=== PATIENT | female | born 1985 | race Caucasian/White ===

== ENCOUNTER 2018-08-03 10:25 | Emergency (ER) | payer BC ==
[2018-08-03] MEDS ORDERED: KETOROLAC TROMETHAMINE INJ/PF 30 MG/1 ML SDV IV ONE (10:51)
[2018-08-03] MEDS ORDERED: ONDANSETRON HCL INJ/PF 4 MG/2 ML SDV IV ONE (10:51)
--- NOTE | 2018-08-03 10:56 | ER Document Report ---
ED GI/ - General Chief Complaint: Abdominal Cramping Stated Complaint: ABDOMINAL PAIN/VAGINAL BLEEDING Time Seen by Provider: 08/03/18 10:40 Notes: Patient is complaining of pain in the lower abdomen/pelvic region that began about 5 AM this morning. She feels as if it is "razor blades" sticking in her lower abdomen. Patient is being seen by a local AVIATION MANAGER for vaginal bleeding that has been heavy ever since she had her son 2 years ago. Beginning on June 02 , of this year, patient says that her bleeding has become daily, every day. She has had an office ultrasound in mid June, which showed a left ovarian cyst and "hyperplasia and thickened endometrium". She has had Pap smears and colposcopy performed and is scheduled for D&C August 07. She will have an IUD placed a couple of weeks later to provide hormone therapy. Patient has had her tubes tied and had IUDs in the past. She has had 3 C-sections, but no other abdominal surgeries. Patient does have anxiety for which she takes Xanax as needed, but has not taken any recently. TRAVEL OUTSIDE OF THE [place] IN LAST 30 DAYS: No - Related Data Allergies/Adverse Reactions: acetaminophen [From Percocet] Allergy (Verified 08/03/18 10:56) butalbital [From Fioricet] Allergy (Verified 08/03/18 10:56) caffeine [From Fioricet] Allergy (Verified 08/03/18 10:56) nortriptyline [Nortriptyline] Allergy (Verified 08/03/18 10:56) oxycodone HCl [From Percocet] Allergy (Verified 08/03/18 10:56) Penicillins Allergy (Verified 08/03/18 10:56) Past Medical History - Social History Smoking Status: Unknown if Ever Smoked Family History: Reviewed & Not Pertinent Endocrine Medical History: Reports: Hx Diabetes Mellitus Type 2 - gestational Past Surgical History: Reports: Hx Breast Surgery - reduction, Hx Section - Immunizations Hx Diphtheria, Pertussis, Tetanus Vaccination: Yes - received with [facility] Review of Systems - Review of Systems Notes: REVIEW OF SYSTEMS: CONSTITUTIONAL : Denies fever. EENT: Denies eye, ear, nose or mouth or throat pain or other symptoms. CARDIOVASCULAR: Denies chest pain. RESPIRATORY: Denies cough, chest congestion, or shortness of breath. GASTROINTESTINAL: See HPI. GENITOURINARY: Denies difficulty or painful urinating, urinary frequency, blood in urine. MUSCULOSKELETAL: Denies back or neck pain. Denies joint pain or swelling. SKIN: Denies rash or skin lesions. NEUROLOGICAL: Denies LOC or altered mental status. Denies headache. Denies sensory loss or motor deficits. ALL OTHER SYSTEMS REVIEWED AND NEGATIVE. Physical Exam - Vital signs Vitals: Temp Pulse Resp BP Pulse Ox 98.2 F 85 20 151/88 H 97 08/03/18 10:31 08/03/18 10:31 08/03/18 10:31 08/03/18 10:31 08/03/18 10:31 Interpretation: Normal - Notes Notes: PHYSICAL EXAMINATION: GENERAL: Well-appearing, in no acute distress. HEAD: Atraumatic, normocephalic. EYES: Pupils equal round and reactive to light, extraocular movements intact. NECK: Normal range of motion, supple. LUNGS: Breath sounds clear and equal bilaterally. HEART: Regular rate and rhythm without murmurs. ABDOMEN: Soft, mildly tender in the suprapubic region. No guarding or rebound. No masses. BACK: Mild paralumbar tenderness in the lower back, but otherwise no tenderness throughout remainder of the back. EXTREMITIES: Normal range of motion without pain. NEUROLOGICAL: Normal speech, normal gait. Normal sensory, motor, and reflex exams. Awake, alert, and oriented x3. Cranial nerves normal. PSYCH: Normal mood, normal affect. SKIN: Warm, dry, no rashes. - Genitourinary External exam: Normal Speculum exam: Cervix closed. No: Vaginal discharge Vaginal bleeding: Mild - No clots seen Bimanuel exam: Uterus enlarged - Somewhat enlarged and very tender to press.. No: Cervical motion tender, Bladder/Urethral tender, Adnexal mass, Adnexal tenderness Course - Re-evaluation Re-evalutation: 08/03/18 11:47 Patient says she got a "little bit" of pain relief with the Toradol. We will give her some fentanyl IV. Have ordered an ultrasound. 08/03/18 16:24 Patient requested additional pain medication and was given a milligram of Dilaudid IV. That seemed to help her pain significantly. Lab studies all came back essentially normal except for her urinalysis. White count and differential normal. I initially did an ultrasound which did not show any significant finding except for endometrial hyperplasia and collection of heterogeneous material in the uterus. Patient's urine looked like a possible UTI with many WBCs and RBCs on the urinalysis. The blood could be secondary to the patient's continuous vaginal bleeding that she has had for the last several months. However she had a significant number of white cells. A urine culture was ordered, the patient was given Rocephin 1 g IV, and she will be discharged on a 6-day prescription for Macrobid. I spoke with Dr. Irwin, on-call for INJECTION MOLDING OPERATOR, asked him if there is anything else that he would recommend me doing at this time and he had no other recommendations and felt the patient had been sufficiently worked up and could be discharged home. Patient was advised to return if she has any new or worsening symptoms. - Vital Signs Vital signs: Temp Pulse Resp BP Pulse Ox 98.2 F 85 20 151/88 H 97 08/03/18 10:31 08/03/18 10:31 08/03/18 10:31 08/03/18 10:31 08/03/18 10:31 - Laboratory Result Diagrams: 08/03/18 11:05 08/03/18 11:05 Laboratory results interpreted by me: 08/03/18 08/03/18 10:30 11:05 RDW 14.4 H Urine Protein 100 H Urine Blood LARGE H - Diagnostic Test Radiology reviewed: Image reviewed, Reports reviewed - Ultrasound shows collection of heterogeneous material in the uterus. CT scan showed the same. Otherwise, both of those studies were unremarkable. There is no evidence of any kidney stone or hydronephrosis. CT scan noncontrasted showed the same heterogeneous collection of material in the uterus but no other findings. Discharge - Discharge Clinical Impression: Pelvic pain, Abdominal pain, Endometrial hyperplasia, UTI (urinary tract infection) Condition: Stable Disposition: HOME, SELF-CARE Additional Instructions: ABDOMINAL PAIN: There are many causes of abdominal pain. Pain can mean a serious problem requiring surgery (such as appendicitis). It can also be an innocent problem that goes away on its own (such as a viral infection). Often, time must pass to determine the cause of pain. The physician does not feel that hospitalization is necessary, at present. Things may change within the next 24 hours. Call the doctor or come back for re- examination if any problems occur, such as: (1) Pain that becomes more severe, steady, or becomes concentrated in one specific area. Also, pain that is more severe with movement or coughing. (2) Vomiting that persists or becomes more frequent. (3) Blood in the vomitus, urine, or bowel movements. Blood in the stool may have a tarry or black appearance. (4) Shaking chills or fever greater than 100 degrees F. (5) The abdomen becomes more distended or swollen. (6) Bowel movements cease. (7) Failure to improve as expected. You have been found to have fluid and other materials in the your uterus that is likely the cause of your pain. That is also the reason that you are scheduled to have the D&C done Sunday. TORADOL INJECTION: You have been given an injection of ketorolac tromethamine (Toradol). This is an excellent, safe drug for pain control. It also has potent antiinflammatory action. You should have significant pain relief within about one hour. Toradol is not addicting and is non-sedating. It does not interfere with driving or work. Call or return if you develop itching, hives, shortness of breath, or rash. PAIN MEDICATION INJECTION: You have received an injection of a pain medication. You should experience significant pain relief within 45 minutes. This drug is a narcotic - - it will impair your judgement, slow your reaction time and make you sleepy ( as well as relieve your pain). Narcotics also can cause nausea. You should not drive, work with machinery, or perform any task requiring mental alertness until all effects of the medication are gone -- six to eight hours. Do not take any alcohol, or sedatives, and do not take any other medication without checking with your physician. ORAL NARCOTIC MEDICATION: You have been given a prescription for pain control. This medication is a narcotic. It's best taken with food, as nausea can result if taken on an empty stomach. Don't operate machinery or drive within six hours of taking this medication. Do not combine this medicine with alcohol, or with any medication which can cause sedation (such as cold tablets or sleeping pills) unless you get permission from the physician. Narcotics tend to cause constipation. If possible, drink plenty of fluids and eat a diet high in fiber and fruits. Likely URINARY TRACT INFECTION: Your evaluation indicates that you may have a urinary tract infection. This is due to germs growing in the bladder. This is a common problem. This infection usually responds quickly to antibiotics. Your antibiotic should be taken exactly as prescribed. Drink plenty of fluids -- three to four quarts a day. Occasionally, a bladder anesthetic will be prescribed to help stop the feeling of urgency until the antibiotic has a chance to clear the infection. This may cause your urine to be dark orange. Certain urine infections require a culture. If the doctor obtained a culture, the results will be back in two days. You should call to see if a change in treatment is needed. A repeat urinalysis after you finish treatment is often recommended. The physician will let you know if further testing is required. Call the doctor if you develop fever, chills, flank pain, inability to urinate, or blood in the urine. ANTIBIOTIC THERAPY: You have been given an antibiotic prescription. It's important that you take all the medication, unless instructed otherwise by your physician. Failure to complete the entire course can result in relapse of your condition. Common side effects of antibiotics include nausea, intestinal cramping, or diarrhea. Women may develop vaginal yeast infections, and babies can get yeast (thrush) in the mouth following the use of antibiotics. Contact your physician if you develop significant side effects from this medication. Allergy to this antibiotic can result in hives, wheezing, faintness, or itching. If symptoms of allergy occur, stop the medication and call the doctor. NITROFURANTOIN (MACRODANTIN, MACROBID): You have received a prescription for nitrofurantoin (Macrodantin). This antibiotic is used for urinary tract infections. Women who are or nursing should notify the physician before taking this medicine. If you have ever had a problem caused by this medication in the past, be sure the physician is aware of it. Common side effects of this medicine include nausea, vomiting, or decreased appetite. Notify your physician if these side effects become severe. Immediately stop this medicine and call the physician if you develop cough , shortness of breath, chest pain, weakness, jaundice (yellow color of the skin and whites of the eyes), or a skin rash. FOLLOW-UP CARE: If you have been referred to a physician for follow-up care, call the physician s office for an appointment as you were instructed or within the next two days. If you experience worsening or a significant change in your symptoms, notify the physician immediately or return to the Emergency Department at any time for re-evaluation. Keep your appointments this week to have your preop evaluation and then surgery as scheduled. Return at any time if you having new or worsening symptoms such as fevers, increasing pain, etc. Prescriptions: Hydrocodone/Acetaminophen [Tumtum 5-325 Tablet] 1 - 2 each PO Q6HP PRN #15 tablet PRN Reason: Nitrofurantoin/Nitrofuran Mac [Macrobid 100 mg Capsule] 1 tab PO BID #12 capsule Referrals: RONEL CASTILLO MD [ACTIVE STAFF] - Follow up as needed
[2018-08-03] MEDS ORDERED: FENTANYL CITRATE INJ/PF 100 MCG/2 ML AMPUL IV ONE (11:43)
[2018-08-03 11:44] LABS: APPEARANCE,URINE CLOUDY; BILIRUBIN,URINE NEGATIVE (NEGATIVE); GLUCOSE, URINE NEGATIVE (NEGATIVE); KETONES,URINE NEGATIVE (NEGATIVE); LEUKOCYTE ESTERASE,URINE NEGATIVE (NEGATIVE); NITRITE,URINE NEGATIVE (NEGATIVE); PROTEIN,URINE 100 mg/dL (NEGATIVE); URINE SPECIFIC GRAVITY 1.018; UROBILINOGEN,URINE NEGATIVE mg/dL (<2.0)
[2018-08-03 11:46] LABS: COLOR,URINE ORANGE
[2018-08-03 11:54] LABS: ABSOLUTE EOSINOPHILS # (AUTO) 0.3 10^3/uL (0.0-0.6); ABSOLUTE LYMPHOCYTES (AUTO) 2.8 10^3/uL (0.5-4.7); ABSOLUTE MONOCYTES (AUTO) 0.8 10^3/uL (0.1-1.4); ABSOLUTE NEUT (AUTO) 6.2 10^3/uL (1.7-8.2); BASOPHILS % (AUTO) 0.4 % (0-2); EOSINOPHILS % (AUTO) 2.9 % (0-6); HEMATOCRIT 39.4 % (36.0-47.0); HEMOGLOBIN 13.3 g/dL (12.0-15.5); LYMPHOCYTES % (AUTO) 27.2 % (13-45); MEAN CORPUSCULAR HEMOGLOBIN 27.9 pg (27.0-33.4); MEAN CORPUSCULAR HGB CONC 33.7 g/dL (32.0-36.0); MEAN CORPUSCULAR VOLUME 83 fl (80-97); MONOCYTES % (AUTO) 8.4 % (3-13); PLATELET COUNT 301 10^3/uL (150-450); RED BLOOD COUNT 4.76 10^6/uL (3.72-5.28); RED CELL DISTRIBUTION WIDTH 14.4 % (11.5-14.0); SEGMENTED NEUTROPHILS % (AUTO) 61.1 % (42-78); TOTAL CELLS COUNTED % (AUTO) 100 %; WHITE BLOOD COUNT 10.1 10^3/uL (4.0-10.5)
[2018-08-03 11:55] LABS: ALANINE AMINOTRANSFERASE 38 U/L (9-52); ALBUMIN 4.6 g/dL (3.5-5.0); ALKALINE PHOSPHATASE 62 U/L (38-126); ANION GAP 14 (5-19); ASPARTATE AMINO TRANSFERASE 29 U/L (14-36); BILIRUBIN,DIRECT 0.3 mg/dL (0.0-0.4); BILIRUBIN,TOTAL 0.5 mg/dL (0.2-1.3); BLOOD UREA NITROGEN 11 mg/dL (7-20); CALCIUM 9.8 mg/dL (8.4-10.2); CARBON DIOXIDE 24 mmol/L (22-30); CHLORIDE 103 mmol/L (98-107); GLUCOSE 98 mg/dL (75-110); LIPASE 93.1 U/L (23-300); POTASSIUM 4.8 mmol/L (3.6-5.0); TOTAL PROTEIN 7.8 g/dL (6.3-8.2)
--- NOTE | 2018-08-03 14:07 | RADIOLOGY REPORT (SQ) ---
EXAM DESCRIPTION: U/S NON OB PEL W/DOPPLER COMPLETED DATE/TIME: 08/03/2018 12:56 pm REASON FOR STUDY: Lower midline abdominal pain, Hx of ovarian cyst COMPARISON: 11/13/2007 TECHNIQUE: Dynamic and static grayscale images acquired of the pelvis via transabdominal approach an d recorded on PACS. Additional selected color Doppler and spectral images recorded. LIMITATIONS: None. FINDINGS: UTERUS: Contour normal. No mass. ENDOMETRIAL STRIPE: Heterogenous CERVIX: Few nabothian cysts. Heterogenous material within the cervical canal. RIGHT OVARY AND DOPPLER: Ovary not visualized. LEFT OVARY AND DOPPLER: Ovary not visualized. FREE FLUID: None noted. OTHER: No other significant finding. MEASUREMENTS: UTERUS: 11.9 x 5.1 x 6.4 cm ENDOMETRIAL STRIPE: 2.2 cm RIGHT OVARY: Not visualized. LEFT OVARY: Not visualized IMPRESSION: 1. Nonvisualization of the ovaries. 2. Heterogenous material within the endometrium extending into the cervical canal which likely repres ents blood products giving the patient's age. However, other etiologies remain in the differential. Correlate with physical exam and tissue sampling. TECHNICAL DOCUMENTATION: JOB ID: [id number] [employer]- All Rights Reserved Rev-02/08 Reading location - IP/workstation name: [email or web address]
--- NOTE | 2018-08-03 14:42 | RADIOLOGY REPORT (SQ) ---
EXAM DESCRIPTION: CT LTD RENAL STONE PROTOCOL ON COMPLETED DATE/TIME: 08/03/2018 2:01 pm REASON FOR STUDY: Suprapubic pain and left side pain and hematuria COMPARISON: Concurrent pelvic ultrasound TECHNIQUE: CT scan of the abdomen and pelvis performed without intravenous or oral contrast. Images reviewed with lung, soft tissue, and bone windows. Reconstructed coronal and sagittal MPR images revi ewed. All images stored on PACS. All CT scanners at this facility use dose modulation, iterative reconstruction, and/or weight based d osing when appropriate to reduce radiation dose to as low as reasonably achievable (ALARA). [facility]: Dose Right [facility]: CareDose [facility]: Dose Right [facility]: Teradose 4D [facility]: Smart HundredApples RADIATION DOSE: CT Rad equipment meets quality standard of care and radiation dose reduction techniq ues were employed. CTDIvol: 11.1 mGy. DLP: 612 mGy-cm.mGy. LIMITATIONS: None. FINDINGS: LOWER CHEST: No significant findings. No nodules or infiltrates. NON-CONTRASTED LIVER, SPLEEN, ADRENALS: Evaluation limited by lack of IV contrast. The liver is diff usely hypoattenuating. No identified significant masses. PANCREAS: No masses. No peripancreatic inflammatory changes. GALLBLADDER: No identified stones by CT criteria. No inflammatory changes to suggest cholecystitis. RIGHT KIDNEY AND URETER: No suspicious masses. Assessment limited by lack of IV contrast. No signif icant calcifications. No hydronephrosis or hydroureter. LEFT KIDNEY AND URETER: No suspicious masses. Assessment limited by lack of IV contrast. No signifi cant calcifications. No hydronephrosis or hydroureter. AORTA AND RETROPERITONEUM: No aneurysm. No retroperitoneal masses or adenopathy. BOWEL AND PERITONEAL CAVITY: No dilated loops of bowel. No obvious masses or inflammatory changes. N o free fluid. No intraperitoneal free air. APPENDIX: Normal. PELVIS, BLADDER, AND ABDOMINAL WALL:Endometrial cavity is distended with heterogeneous hyperattenuati ng an hypoattenuating material, corresponding to same day pelvic ultrasound. Bilateral adnexal hypod ensities, located anteriorly within the pelvis measuring 2.6 x 3.6 cm on the left and 4.4 x 3.4 cm on the right. These likely represent ovarian cysts. Given the age of the patient and the size, no fur ther follow-up is warranted. No pelvic free fluid. Urinary bladder is collapsed. BONES: Mild degenerative disc disease of L4-S1. OTHER: No other significant finding. IMPRESSION: 1. No acute findings within the abdomen or pelvis. Specifically, no nephrolithiasis or hydronephrosi s. 2. Endometrial cavity the uterus is distended with heterogenous material. Again, likely representing blood products, given the patient's age, and corresponding to same day pelvic ultrasound. Recommend ations remain the same. COMMENT: Quality ID # [id number]: Final reports with documentation of one or more dose reduction techniques (e.g., Automated exposure control, adjustment of the mA and/or kV according to patient size, use of iterative reconstruction technique) TECHNICAL DOCUMENTATION: JOB ID: [id number] [employer]- All Rights Reserved Reading location - IP/workstation name: [email or web address]
[2018-08-03] MEDS ORDERED: CEFTRIAXONE INJ 1000 MG VIAL IV ONE (14:43)
[2018-08-03] MEDS ORDERED: HYDROMORPHONE HCL INJ/PF 2 MG/ML AMPULE IV ONE (14:59)
[2018-08-03 16:13] LABS: RBCS (WET MOUNT) 4+ RBCS SEEN; T.VAGINALIS (WET MOUNT) NO TRICHOMONAS SEEN; WBCS (WET MOUNT) NO WBCS SEEN; YEAST (WET MOUNT) NO YEAST SEEN
[2018-08-03 16:31] VITALS: BP 113/81
[2018-08-03 17:43] LABS: CHLAM PCR NOT DETECTED (NOT DETECT); GON PCR NOT DETECTED (NOT DETECT)
== END 2018-08-03 16:30 | disposition home or self-care (01) ==
LOC: ER 10:25
DX: N85.00 Endometrial hyperplasia, unspecified (principal); N39.0 Urinary tract infection, site not specified; R10.30 Lower abdominal pain, unspecified; R10.2 Pelvic and perineal pain; Z88.6 Allergy status to analgesic agent; Z88.0 Allergy status to penicillin; Z97.5 Presence of (intrauterine) contraceptive device
CPT/HCPCS: 99284; 96375; 96365; 36415; 87086; 87210; 83690; 84703; 85025; 80053; 81001; 87491; 87591; 76856; 93976; 76380; J3010; J1885; J1170; J0696; J2405

== ENCOUNTER 2018-08-07 09:55 | Day surgery (SDC) | payer BC ==
[2018-08-06 11:43] LABS: HEMATOCRIT 35.9 % (36.0-47.0); HEMOGLOBIN 12.3 g/dL (12.0-15.5); MEAN CORPUSCULAR HEMOGLOBIN 28.1 pg (27.0-33.4); MEAN CORPUSCULAR HGB CONC 34.2 g/dL (32.0-36.0); MEAN CORPUSCULAR VOLUME 82 fl (80-97); PLATELET COUNT 255 10^3/uL (150-450); RED BLOOD COUNT 4.37 10^6/uL (3.72-5.28); RED CELL DISTRIBUTION WIDTH 14.2 % (11.5-14.0); WHITE BLOOD COUNT 6.7 10^3/uL (4.0-10.5)
[2018-08-06 11:56] LABS: APPEARANCE,URINE SLIGHTLY-CLOUDY; BILIRUBIN,URINE NEGATIVE (NEGATIVE); COLOR,URINE YELLOW; GLUCOSE, URINE NEGATIVE (NEGATIVE); KETONES,URINE NEGATIVE (NEGATIVE); LEUKOCYTE ESTERASE,URINE SMALL (NEGATIVE); NITRITE,URINE NEGATIVE (NEGATIVE); PROTEIN,URINE 30 mg/dL (NEGATIVE); URINE SPECIFIC GRAVITY 1.021
[~2018-08-07 09:55] MED LIST: LIDOCAINE 0.5% INJ-PF (5 MG/ML) 50 ML SDV SUBCUT PRN; RINGERS SOLUTION,LACTATED 1,000 ML IV PRN; SCOPOLAMINE HYDROBROMIDE 1.5 MG PATCH.TD72 TD PRN
[2018-08-07] MEDS ORDERED: SCOPOLAMINE HYDROBROMIDE 1.5 MG PATCH.TD72 ONE (10:03)
[2018-08-07] MEDS ORDERED: LIDOCAINE 0.5%/EPINEPHRINE INJ 50 ML VIAL ONE (10:40)
[2018-08-07] MEDS ORDERED: KETOROLAC TROMETHAMINE 60 MG/2 ML SDV ONE (10:53)
[2018-08-07] MEDS ORDERED: FENTANYL CITRATE INJ/PF 100 MCG/2 ML AMPUL ONE (10:54)
[2018-08-07] MEDS ORDERED: MIDAZOLAM 2 MG/2 ML INJ ONE (10:54)
[2018-08-07] MEDS ORDERED: PROPOFOL INJ 200 MG/20 ML VIAL IV ONE (10:54)
[2018-08-07] MEDS ORDERED: PROMETHAZINE HCL INJ 25 MG/1 ML VIAL IV PRN ×2 (12:15)
[2018-08-07] MEDS ORDERED: FENTANYL CITRATE INJ/PF 100 MCG/2 ML AMPUL IV PRN ×3 (12:15)
[2018-08-07] MEDS ORDERED: DIPHENHYDRAMINE HCL 50 MG/ML VIAL IV PRN (12:15)
[2018-08-07] MEDS ORDERED: MEPERIDINE HCL/PF INJ 25 MG/1 ML DISP.SYRIN IV PRN (12:15)
[2018-08-07] MEDS ORDERED: IBUPROFEN 800 MG TABLET ONE (13:27)
[2018-08-07] MEDS ORDERED: ONDANSETRON HCL INJ/PF 4 MG/2 ML SDV IV PRN (13:42)
[2018-08-07] MEDS ORDERED: OXYCODONE-ACETAMINOPHEN 5-325 MG TABLET PO PRN ×2 (13:48→13:50)
[2018-08-07] MEDS ORDERED: HYDROMORPHONE HCL INJ/PF 2 MG/ML AMPULE IV PRN (13:51)
[2018-08-07 14:47] VITALS: BP 113/70
--- NOTE | 2018-08-07 21:10 | Operative Report ---
Operative Report DATE OF SURGERY: 08/07/18 PREOPERATIVE DIAGNOSIS: Dysfunctional Uterine Bleeding, SImple hyperplasia without atypia, DANGELO II/LSGIL persistent POSTOPERATIVE DIAGNOSIS: CADEN OPERATION: EUA, Paracervical Block, Hysteroscopy, D&C, CKC with ECC SURGEON: CECILIA WARD ANESTHESIA: LMAC TISSUE REMOVED OR ALTERED: EMC, ECC (after CKC), CKC with tag at 12 o'clock. COMPLICATIONS: none ESTIMATED BLOOD LOSS: 5ml INTRAOPERATIVE FINDINGS: 8wks AV uterus with moderate descent for vaginal hysterectomy if needed in future, on hysteroscope endometrium was hyperemic an very thickened on posterior uterine wall. Decreased uptake at 7-8 o'clock and 3 o'clock on cervix after application of silver nitrate. PROCEDURE: Anesthesia: [Joaquim Woodson CRNA, MD] IVF: [800ml] UOP: 100ml Indications: [33yo presents for surgical evaluation and treatment of simple hyperplasia without atypia and with persistent DANGELO II/LGSIL. She was counseled on the risks, benefits, alternatives and desires to proceed with planned procedure.] Procedure: The patient was taken to the Operating Room where anesthesia was obtained without difficulty. She was prepped and draped in the normal sterile fashion in the dorsal lithotomy position. Exam under anesthesia was performed and noted above. A speculum was placed in the vagina. The anterior cervix was grasped with a single-tooth tenaculum and the uterus sounded to 8 cm after paracervical block was performed with 8 mL of 1% lidocaine with epinephrine. Sequential dilators were then used to dilate the cervix to accommodate the hysteroscope. The hysteroscope was then gently advanced into the uterine cavity in the usual fashion with visualization of the thickened hyperemic endometrium as noted above. The hysteroscope was then removed and then gentle curettage was performed until a gritty texture was noted. Suture was placed at 3 o'clock and 9 o'clock and lugol's solution applied to vagina and cervix with findings as noted above. Cold Knife Conization was performed in the usual fashion. Endocervical currettage performed above the conization. The bed of the CKC site was cauterized and monsels soaked foam placed in bed of CKC. All instruments were removed from the patient's cervix and vagina. Silver nitrate was applied to the tenaculum site for hemostasis. Sponge lap needle and instrument counts are correct 2. No perioperative antibiotics were given as is not indicated for this procedure. The patient tolerated the procedure well and was taken to the recovery area awake and in stable condition.
== END 2018-08-07 14:25 | disposition home or self-care (01) ==
LOC: OROUT 09:55
PROVIDERS: ATTEND Student in an Organized Health Care Education/Training Program
DX: D06.9 Carcinoma in situ of cervix, unspecified (principal); N84.0 Polyp of corpus uteri; N93.8 Other specified abnormal uterine and vaginal bleeding; Z79.899 Other long term (current) drug therapy; Z88.0 Allergy status to penicillin; Z88.5 Allergy status to narcotic agent; Z88.8 Allergy status to other drugs, medicaments and biological substances
CPT/HCPCS: 36415; 85027; 81025; 81001; 88305 ×2; 88307 ×2; 57520; 58558; J2250; J3010; J3490; J2704; 952; J1885

== ENCOUNTER 2018-11-13 07:10 | Day surgery (SDC) | payer BC ==
[2018-11-07 10:20] LABS: HEMATOCRIT 36.3 % (36.0-47.0); HEMOGLOBIN 12.2 g/dL (12.0-15.5); MEAN CORPUSCULAR HEMOGLOBIN 27.5 pg (27.0-33.4); MEAN CORPUSCULAR HGB CONC 33.7 g/dL (32.0-36.0); MEAN CORPUSCULAR VOLUME 82 fl (80-97); PLATELET COUNT 299 10^3/uL (150-450); RED BLOOD COUNT 4.44 10^6/uL (3.72-5.28); RED CELL DISTRIBUTION WIDTH 14.1 % (11.5-14.0); WHITE BLOOD COUNT 8.8 10^3/uL (4.0-10.5)
[2018-11-07 10:24] LABS: ALANINE AMINOTRANSFERASE 44 U/L (9-52); ALBUMIN 4.4 g/dL (3.5-5.0); ALKALINE PHOSPHATASE 54 U/L (38-126); ANION GAP 9 (5-19); ASPARTATE AMINO TRANSFERASE 29 U/L (14-36); BILIRUBIN,DIRECT 0.2 mg/dL (0.0-0.4); BILIRUBIN,TOTAL 0.3 mg/dL (0.2-1.3); BLOOD UREA NITROGEN 12 mg/dL (7-20); CALCIUM 9.4 mg/dL (8.4-10.2); CARBON DIOXIDE 24 mmol/L (22-30); CHLORIDE 109 mmol/L (98-107); GLUCOSE 121 mg/dL (75-110); POTASSIUM 4.6 mmol/L (3.6-5.0); SODIUM 142.3 mmol/L (137-145); TOTAL PROTEIN 6.9 g/dL (6.3-8.2)
[2018-11-07 10:57] LABS: APPEARANCE,URINE CLOUDY; BILIRUBIN,URINE NEGATIVE (NEGATIVE); COLOR,URINE YELLOW; GLUCOSE, URINE NEGATIVE (NEGATIVE); KETONES,URINE NEGATIVE (NEGATIVE); LEUKOCYTE ESTERASE,URINE SMALL (NEGATIVE); NITRITE,URINE NEGATIVE (NEGATIVE); PROTEIN,URINE NEGATIVE (NEGATIVE); URINE SPECIFIC GRAVITY 1.021; UROBILINOGEN,URINE NEGATIVE mg/dL (<2.0)
[~2018-11-13 07:10] MED LIST changes: +CEFAZOLIN 1 GM/D5W RTU 1 GM/50 ML RTUPB IV ONE; +CEFAZOLIN 1 GM/D5W RTU 1 GM/50 ML RTUPB IV PRN; +LACTATED RINGERS 1000 ML IV PRN; -RINGERS SOLUTION,LACTATED 1,000 ML IV PRN; +SCOPOLAMINE HYDROBROMIDE 1.5 MG PATCH.TD72 ONE
[2018-11-13] MEDS ORDERED: PROPOFOL INJ 200 MG/20 ML VIAL IV ONE (07:51)
[2018-11-13] MEDS ORDERED: MIDAZOLAM 2 MG/2 ML INJ ONE (07:51)
[2018-11-13] MEDS ORDERED: FENTANYL CITRATE INJ/PF 250 MCG/5 ML AMPULE ONE (07:51)
[2018-11-13] MEDS ORDERED: DIPHENHYDRAMINE HCL 50 MG/ML VIAL IV PRN (09:32)
[2018-11-13] MEDS ORDERED: FENTANYL CITRATE INJ/PF 100 MCG/2 ML AMPUL IV PRN ×3 (09:32)
[2018-11-13] MEDS ORDERED: MEPERIDINE HCL/PF INJ 25 MG/1 ML DISP.SYRIN IV PRN (09:32)
[2018-11-13] MEDS ORDERED: PROMETHAZINE HCL INJ 25 MG/1 ML VIAL IV PRN ×2 (09:32)
[2018-11-13] MEDS ORDERED: DIPHENHYDRAMINE HCL 25 MG CAPSULE PO PRN (10:23)
[2018-11-13] MEDS ORDERED: KETOROLAC TROMETHAMINE INJ/PF 30 MG/1 ML SDV ONE (10:43)
--- NOTE | 2018-11-13 10:48 | OPERATIVE REPORT E ---
Operative Report NAME: ADDIE REINA : 1985 AGE: 33Y DATE OF SURGERY: 11/13/2018 ROOM: PREOPERATIVE DIAGNOSIS: Dysmenorrhea and menorrhagia. POSTOPERATIVE DIAGNOSIS: Dysmenorrhea and menorrhagia. OPERATION: [facility]. SURGEON: Carter GALVAN M.D. ANESTHESIA: General. ESTIMATED BLOOD LOSS: Approximately 75 mL. TISSUE REMOVED: Uterus. PROCEDURE: The patient was placed in a dorsal lithotomy position, prepped, and draped in the usual sterile fashion. A speculum was placed. Cervix was visualized and grasped with a single-tooth tenaculum. Posterior cul-de-sac was entered with sharp dissection. Posterior parietal peritoneum was sutured to the posterior cuff with 2-0 Vicryl. Left uterosacral was clamped, divided, and sutured with 2-0 Vicryl. The procedure was repeated on the right. The cervix was sharply circumscribed. The anterior parietal peritoneum was entered with sharp dissection. Serial clamps were used on each side of the uterus, each pedicle being clamped, divided, and sutured with 2-0 Vicryl, continued to the level of the utero-ovarian ligaments, which were crossclamped and the uterus removed. Utero-ovarian ligaments were sutured with a free tie of 2-0 Vicryl followed by a suture tie of 2-0 Vicryl. The pelvis was inspected and hemostasis was noted. The cuff was closed with interrupted 2-0 Vicryl. Hemostasis was noted. The urine remained clear throughout the procedure. The procedure was terminated, and she was taken to the recovery room in good condition. DICTATING PHYSICIAN: Carter GALVAN M.D. [id number] PHY#: [id number] ID: [id number] JOB#: [id number] ACCT: [id number] cc:Carter GALVAN M.D. >
[2018-11-13] MEDS ORDERED: PROMETHAZINE HCL INJ 25 MG/1 ML VIAL ONE (11:21)
[2018-11-13] MEDS: FENTANYL CITRATE INJ/PF 100 MCG/2 ML AMPUL ONE ×2 (11:26→11:35)
[2018-11-13] MEDS ORDERED: SUCCINYLCHOLINE CHLORIDE INJ 200 MG/10 ML VIAL ONE (11:40)
[2018-11-13] MEDS ORDERED: KETOROLAC TROMETHAMINE 60 MG/2 ML SDV ONE (11:40)
[2018-11-13] MEDS ORDERED: DEXAMETHASONE SOD PHOSPHATE INJ 4 MG/1 ML VIAL ONE (11:40)
[2018-11-13] MEDS ORDERED: ONDANSETRON HCL INJ/PF 4 MG/2 ML SDV ONE (11:40)
[2018-11-13] MEDS: IBUPROFEN 800 MG TABLET PO SCH ×2 (14:08→23:31)
[2018-11-13] MEDS: ONDANSETRON HCL 8 MG TABLET PO SCH ×2 (14:10→17:41)
[2018-11-13] MEDS: HYDROMORPHONE HCL 2 MG TABLET PO PRN (15:58)
[2018-11-13] MEDS ORDERED: ONDANSETRON HCL 8 MG TABLET ONE (17:38)
[2018-11-14] MEDS: HYDROMORPHONE HCL 2 MG TABLET PO PRN (04:38)
[2018-11-14 08:19] VITALS: BP 134/90
[2018-11-14] MEDS ORDERED: [UNRECOGNIZED DRUG - OTHER] PO SCH (10:00)
[2018-11-14] MEDS ORDERED: PRENATAL VITAMIN W DHA CAPSULE PO SCH (10:00)
[2018-11-14] MEDS ORDERED: PRENATAL PO SCH (10:00)
[2018-11-14] MEDS ORDERED: FOLIC ACID PO SCH (10:00)
[2018-11-14] MEDS ORDERED: IRON PO SCH (10:00)
[2018-11-14] MEDS ORDERED: B6 PO SCH (10:00)
--- NOTE | 2018-11-14 10:47 | PDOC DISCHARGE SUMMARY ---
General - Admit/Disc Date/PCP Discharge Date: 11/14/18 - Discharge Diagnosis (1) Dysmenorrhea Is this a current diagnosis for this admission?: Yes (2) Menorrhagia Is this a current diagnosis for this admission?: Yes - Additional Information Discharge Diet: As Tolerated, Regular Discharge Activity: Activity As Tolerated, Balance Activity w/Rest, No Lifting Over 10 Pounds, No Lifting/Push/Pulling, Pelvic Rest, No tub bath, Walk Frequently Home Medications: 48/Iron/Folic Acid/B6 [Vinacal B Combo Pack] 1 tab PO DAILY 10/08/15 Diphenhydramine HCl [Benadryl 25 mg Capsule] 25 mg PO PRN PRN 11/07/18 Oxycodone HCl/Acetaminophen [Percocet 5-325 mg Tablet] 1 tab PO QHS PRN 11/07/18 History of Present Illness Patient complains of: dysmenorrhea and menorrhagia History of Present Illness: ADDIE REINA is a 33 year old female admitted for [facility] duetp dysmenorrhea and menorrhagia Hospital Course Hospital Course: py had [facility] and benign hospital course. she is tolration a reg diet and ambulating without difficulty.. bowel and bladder function good Physical Exam - Physical Exam Vital Signs: Temp Pulse Resp BP Pulse Ox 98.3 F 78 18 134/90 H 98 11/14/18 07:33 11/14/18 07:33 11/14/18 07:33 11/14/18 07:33 11/14/18 07:33 Intake & Output 11/13/18 11/14/18 11/15/18 06:59 06:59 06:59 Intake Total 1665 Output Total 275 Balance 1390 Weight 90.72 kg General appearance: PRESENT: no acute distress Respiratory exam: PRESENT: clear to auscultation jakob GI/Abdominal exam: PRESENT: tenderness Result Laboratory Results: 11/07/18 09:33 11/07/18 09:33 Plan Discharge Plan: discharge f/u 1 week Time Spent: Less than 30 Minutes
== END 2018-11-14 11:35 | disposition home or self-care (01) ==
LOC: OROUT 07:10 → 2S 12:47 → OROUT 11-14 11:35
PROVIDERS: ATTEND Obstetrics & Gynecology Gynecology
DX: N92.1 Excessive and frequent menstruation with irregular cycle (principal); N94.6 Dysmenorrhea, unspecified; N87.0 Mild cervical dysplasia; Z01.818 Encounter for other preprocedural examination; Z13.0 Encounter for screening for diseases of the blood and blood-forming organs and certain disorders involving the immune mechanism; Z88.0 Allergy status to penicillin; Z88.5 Allergy status to narcotic agent
CPT/HCPCS: 86900; 86901; 36415; 86850; 85027; 81025; 80053; 81001; 88307 ×2; 58260; J2250; J0690; J1100; J1885 ×2; J3010 ×2; S0119; J2550; J0330; J2405; J2704; J3490; 944

== ENCOUNTER 2018-11-24 12:07 | Emergency (ER) | payer BC ==
--- NOTE | 2018-11-24 12:22 | ER Document Report ---
ED Medical Screen (RME) - General Chief Complaint: Post Surgical Bleeding Stated Complaint: POST OP COMPLICATIONS Time Seen by Provider: 11/24/18 12:21 Mode of Arrival: Ambulatory Information source: Patient TRAVEL OUTSIDE OF THE [place] IN LAST 30 DAYS: No - HPI Patient complains to provider of: post-op bleeding Onset: This morning - pt. had hysterectomy 11/13 and was doing well until earlier today when she had large amount of vaginal bleeding - Related Data Allergies/Adverse Reactions: acetaminophen [From Percocet] Allergy (Verified 11/24/18 12:08) nortriptyline [Nortriptyline] Allergy (Verified 11/24/18 12:08) oxycodone HCl [From Percocet] Allergy (Verified 11/24/18 12:08) Penicillins Allergy (Verified 11/24/18 12:08) sumatriptan [From Imitrex] Adverse Reaction (Verified 11/24/18 12:08) Past Medical History - Past Medical History Cardiac Medical History: Denies: Hx Coronary Artery Disease, Hx Heart Attack, Hx Hypertension Pulmonary Medical History: Denies: Hx Asthma, Hx Bronchitis, Hx COPD, Hx Pneumonia Neurological Medical History: Denies: Hx Cerebrovascular Accident, Hx Seizures Endocrine Medical History: Reports: Hx Diabetes Mellitus Type 2 - gestational Renal/ Medical History: Denies: Hx Peritoneal Dialysis Musculoskeltal Medical History: Denies Hx Arthritis Past Surgical History: Reports: Hx Breast Surgery - reduction, Hx Section, Hx Tubal Ligation - Immunizations Hx Diphtheria, Pertussis, Tetanus Vaccination: Yes - received with [facility] History of Influenza Vaccine for 06/2017 - 11/2017 Season: Yes Influenza Administration Date for 06/2017 - 11/2017 Season: 06/24/18 Physical Exam - Vital signs Vitals: Temp Pulse Resp BP Pulse Ox 98 F 85 18 147/85 H 99 11/24/18 12:10 11/24/18 12:10 11/24/18 12:10 11/24/18 12:10 11/24/18 12:10 Course - Vital Signs Vital signs: Temp Pulse Resp BP Pulse Ox 98 F 85 18 147/85 H 99 11/24/18 12:10 11/24/18 12:10 11/24/18 12:10 11/24/18 12:10 11/24/18 12:10
[2018-11-24 12:52] LABS: ABSOLUTE EOSINOPHILS # (AUTO) 0.2 10^3/uL (0.0-0.6); ABSOLUTE LYMPHOCYTES (AUTO) 2.4 10^3/uL (0.5-4.7); ABSOLUTE MONOCYTES (AUTO) 0.6 10^3/uL (0.1-1.4); ABSOLUTE NEUT (AUTO) 4.2 10^3/uL (1.7-8.2); BASOPHILS % (AUTO) 0.6 % (0-2); EOSINOPHILS % (AUTO) 3.1 % (0-6); HEMATOCRIT 36.6 % (36.0-47.0); HEMOGLOBIN 12.3 g/dL (12.0-15.5); LYMPHOCYTES % (AUTO) 32.3 % (13-45); MEAN CORPUSCULAR HEMOGLOBIN 27.2 pg (27.0-33.4); MEAN CORPUSCULAR HGB CONC 33.7 g/dL (32.0-36.0); MEAN CORPUSCULAR VOLUME 81 fl (80-97); MONOCYTES % (AUTO) 8.4 % (3-13); PLATELET COUNT 358 10^3/uL (150-450); RED BLOOD COUNT 4.53 10^6/uL (3.72-5.28); RED CELL DISTRIBUTION WIDTH 13.6 % (11.5-14.0); SEGMENTED NEUTROPHILS % (AUTO) 55.6 % (42-78); TOTAL CELLS COUNTED % (AUTO) 100 %; WHITE BLOOD COUNT 7.6 10^3/uL (4.0-10.5)
[2018-11-24 13:01] LABS: APPEARANCE,URINE CLOUDY; BILIRUBIN,URINE NEGATIVE (NEGATIVE); COLOR,URINE YELLOW; GLUCOSE, URINE NEGATIVE (NEGATIVE); KETONES,URINE NEGATIVE (NEGATIVE); LEUKOCYTE ESTERASE,URINE LARGE (NEGATIVE); NITRITE,URINE NEGATIVE (NEGATIVE); PROTEIN,URINE 30 mg/dL (NEGATIVE); UROBILINOGEN,URINE NEGATIVE mg/dL (<2.0)
[2018-11-24 13:04] LABS: ALANINE AMINOTRANSFERASE 43 U/L (9-52); ALBUMIN 4.6 g/dL (3.5-5.0); ALKALINE PHOSPHATASE 64 U/L (38-126); ANION GAP 10 (5-19); ASPARTATE AMINO TRANSFERASE 25 U/L (14-36); BILIRUBIN,DIRECT 0.1 mg/dL (0.0-0.4); BILIRUBIN,TOTAL 0.3 mg/dL (0.2-1.3); BLOOD UREA NITROGEN 15 mg/dL (7-20); CALCIUM 9.7 mg/dL (8.4-10.2); CARBON DIOXIDE 28 mmol/L (22-30); CHLORIDE 106 mmol/L (98-107); GLUCOSE 105 mg/dL (75-110); POTASSIUM 4.3 mmol/L (3.6-5.0); SODIUM 143.8 mmol/L (137-145); TOTAL PROTEIN 7.5 g/dL (6.3-8.2)
--- NOTE | 2018-11-24 15:33 | ER Document Report ---
Addendum entered and electronically signed by AMBREEN KELLER PA-C 11/24/18 15:38: Discharge - Discharge Clinical Impression: Vaginal bleeding, History of hysterectomy UTI (urinary tract infection) Qualifiers: Urinary tract infection type: site unspecified Hematuria presence: without hematuria Qualified Code(s): N39.0 - Urinary tract infection, site not specified Condition: Good Disposition: HOME, SELF-CARE Instructions: Vaginal Bleeding ([facility]), Urinary Tract Infection ([facility]) Additional Instructions: Please return to the emergency department if you start to bleed heavily such that you are using at least 1 pad per hour to contain the bleeding. Otherwise if you continue to just spotting, please call your educational coordinator tomorrow morning and set up an outpatient follow-up. Prescriptions: Ciprofloxacin HCl [Cipro 500 mg Tablet] 500 mg PO BID #10 tablet Referrals: TOM STAPLETON MD [Primary Care Provider] - Follow up as needed ANEUDY REYES MD [ACTIVE STAFF] - Follow up tomorrow Original Note: ED General - General Chief Complaint: Post Surgical Bleeding Stated Complaint: POST OP COMPLICATIONS Time Seen by Provider: 11/24/18 12:21 Primary Care Provider: TOM STAPLETON MD [Primary Care Provider] - Follow up as needed Mode of Arrival: Ambulatory Information source: Patient TRAVEL OUTSIDE OF THE [place] IN LAST 30 DAYS: No - HPI Patient complains to provider of: Vaginal bleeding status post hysterectomy Onset: Just prior to arrival Onset/Duration: Sudden Quality of pain: Achy Severity: Moderate Pain Level: 3 Associated symptoms: denies: Chills, Fever Exacerbated by: Denies Relieved by: Denies Similar symptoms previously: No Recently seen / treated by doctor: No Notes: Patient is a 33-year-old female presenting for vaginal bleeding after hysterectomy. She had a vaginal hysterectomy performed on 13 November. She was doing fine. Her little son apparently jumped up on her stomach wanting to play with her. This morning she was on the toilet going to the bathroom and experienced what she describes as a gush of red blood from her vagina. Ever since then she has had just a small amount of spotting. She is having some soreness which she describes as normal from the procedure. She is not experienced any more gushing. She is not dizzy, lightheaded, weak, or short of breath. - Related Data Allergies/Adverse Reactions: acetaminophen [From Percocet] Allergy (Verified 11/24/18 12:08) nortriptyline [Nortriptyline] Allergy (Verified 11/24/18 12:08) oxycodone HCl [From Percocet] Allergy (Verified 11/24/18 12:08) Penicillins Allergy (Verified 11/24/18 12:08) sumatriptan [From Imitrex] Adverse Reaction (Verified 11/24/18 12:08) Past Medical History - General Information source: Patient - Social History Smoking Status: Never Smoker Family History: Reviewed & Not Pertinent Patient has suicidal ideation: No Patient has homicidal ideation: No - Past Medical History Cardiac Medical History: Denies: Hx Coronary Artery Disease, Hx Heart Attack, Hx Hypertension Pulmonary Medical History: Denies: Hx Asthma, Hx Bronchitis, Hx COPD, Hx Pneumonia Neurological Medical History: Denies: Hx Cerebrovascular Accident, Hx Seizures Endocrine Medical History: Reports: Hx Diabetes Mellitus Type 2 - gestational Renal/ Medical History: Denies: Hx Peritoneal Dialysis Musculoskeletal Medical History: Denies Hx Arthritis Past Surgical History: Reports: Hx Breast Surgery - reduction, Hx Section, Hx Hysterectomy, Hx Tubal Ligation - Immunizations Hx Diphtheria, Pertussis, Tetanus Vaccination: Yes - received with [facility] Review of Systems - Review of Systems Notes: Constitutional: No fevers. No chills. EENT: No eye redness. No eye pain. No ear pain. No sore throat. Cardiovascular: No chest pain. No palpitations. Respiratory: No cough. No shortness of breath. No respiratory distress. Gastrointestinal: No abdominal pain. No nausea, vomiting, or diarrhea. Genitourinary: Positive for vaginal bleed Musculoskeletal: Atraumatic. No swelling. No deformities. Skin: No rash or lesions. Lymphatic: No swollen lymph nodes. Neurologic: No headache. No syncope. Psychiatric: No suicidal or homicidal ideation. Physical Exam - Vital signs Vitals: Temp Pulse Resp BP Pulse Ox 98 F 85 18 147/85 H 99 11/24/18 12:10 11/24/18 12:10 11/24/18 12:10 11/24/18 12:10 11/24/18 12:10 - Notes Notes: General: Well-developed, well-nourished. In no acute distress. Non-toxic appearing. Cardiac: Well-perfused. Regular rate and rhythm. No murmurs, rubs, or gallops. Pulmonary: No respiratory distress. No cyanosis. Bilateral lung fiels are clear to auscultation. Abdominal: Non-distended. Non-rigid. Bowels sounds are present in all four quadrants. No guarding or rebound. HEENT: Head is atraumatic. Conjunctivae not reddened. No tearing. PERRL. EOMI. Orbits atraumatic. No periorbital swelling or erythema. Oropharynx is without erythema, swelling, or exudates. Neck: Supple. No adenopathy. No meningismus. Dermatologic: Warm with good turgor. No rash. Atraumatic. Chest: Atraumatic. No chest wall tenderness to palpation. Musculoskeletal: Moves all extremities well. No range of motion deficits. no muscular or joint tenderness. No paraspinal muscle tenderness. no midline spinal tenderness or step-off. Genitourinary: Examination deferred per patient request Neurologic: No gross neurologic deficits. Psychiatric: Normal mood. Course - Re-evaluation Re-evalutation: 11/24/18 15:31 Patient is apparently just spotting now. Her hemoglobin is well within normal range. Patient prefers not to have a pelvic exam now that her bleeding has subsided for the most part. She is not symptomatic of acute blood loss. She will follow-up with her surgeon Dr. Aneudy Reyes in the next couple of days. She will return here if she starts to have intractable hemorrhaging. - Vital Signs Vital signs: Temp Pulse Resp BP Pulse Ox 98 F 85 18 147/85 H 99 11/24/18 12:10 11/24/18 12:10 11/24/18 12:10 11/24/18 12:10 11/24/18 12:10 - Laboratory Result Diagrams: 11/24/18 12:40 11/24/18 12:40 Laboratory results interpreted by me: 11/24/18 12:40 Urine Protein 30 H Urine Blood LARGE H Ur Leukocyte Esterase LARGE H Discharge - Discharge Clinical Impression: Vaginal bleeding, History of hysterectomy Condition: Good Disposition: HOME, SELF-CARE Instructions: Vaginal Bleeding ([facility]) Additional Instructions: Please return to the emergency department if you start to bleed heavily such that you are using at least 1 pad per hour to contain the bleeding. Otherwise if you continue to just spotting, please call your educational coordinator tomorrow morning and set up an outpatient follow-up. Referrals: TOM STAPLETON MD [Primary Care Provider] - Follow up as needed ANEUDY REYES MD [ACTIVE STAFF] - Follow up tomorrow
[2018-11-24 15:47] VITALS: BP 129/84
== END 2018-11-24 15:45 | disposition home or self-care (01) ==
LOC: ER 12:07
DX: N93.9 Abnormal uterine and vaginal bleeding, unspecified (principal); N39.0 Urinary tract infection, site not specified; Z90.710 Acquired absence of both cervix and uterus; Z88.5 Allergy status to narcotic agent; Z88.0 Allergy status to penicillin; Z88.8 Allergy status to other drugs, medicaments and biological substances
CPT/HCPCS: 36415; 80053; 81001; 85025; 99284